=== PATIENT | female | born 1955 | race Caucasian/White ===

== ENCOUNTER → 2017-12-25 12:43 | Outpatient (CLI) | payer OTHER, SELFPAY ==
[2017-12-25 13:09] LABS: Add Manual Diff / Slide Review NO; Basophils Percent Auto 1.3 % (0-2); Eosinophils Percent Auto 4.1 % (2-4); Hematocrit 37.4 % (36-46); Hemoglobin 12.9 g/dL (12.0-16.0); Lymphocytes Percent Auto 35.9 % (25-40); Mean Corpuscular HGB Conc 34.6 % (30-36); Mean Corpuscular Hemoglobin 31.6 PG (26-34); Mean Corpuscular Volume 91.3 fL (80-100); Neutrophils Absolute Auto 3100 /uL (3000-5900); Neutrophils Percent Auto 51.7 % (50-75); Platelet Count 223 X10^3/uL (150-400); Red Cell Distribution Width 12.6 % (11.6-14.8); White Blood Cell Count 5.9 X10^3/uL (4.5-11.0)
[2017-12-25 13:12] LABS: Hemoglobin A1C% w Est Avg Glu 5.5 % (4.0-6.0)
[2017-12-25 14:09] LABS: Thyroid Stimulating Hormone 0.78 uIU/mL (0.47-4.68)
== END ==
PROVIDERS: PCP Family Medicine; Visit Provider Nurse Practitioner Family
DX: Z13.1 Encounter for screening for diabetes mellitus (principal); Z13.0 Encounter for screening for diseases of the blood and blood-forming organs and certain disorders involving the immune mechanism; Z13.29 Encounter for screening for other suspected endocrine disorder
CPT/HCPCS: 36415; 83036; 84443; 85025

== ENCOUNTER → 2017-12-26 08:00 | Outpatient (CLI) | payer OTHER, SELFPAY ==
--- NOTE | 2017-12-26 | DI.MG.S_ITS ---
BILATERAL DIGITAL SCREENING MAMMOGRAM 3D/2D WITH CAD: 12/26/2017 CLINICAL: Routine screening. Comparison is made to exams dated: 12/12/2016 mammogram, 11/30/2015 mammogram, and 03/24/2013 mammogram - [facility]. The tissue of both breasts is extremely dense, which lowers the sensitivity of mammography. Current study was also evaluated with a Computer Aided Detection (CAD) system. No significant masses, calcifications, or other findings are seen in either breast. There has been no significant interval change. IMPRESSION: NEGATIVE There is no mammographic evidence of malignancy. A 1 year screening mammogram is recommended. This exam was interpreted at Station ID: [id number]. NOTE: For mammograms, a report in lay terms will be sent to the patient. Approximately 15% of breast malignancies will not be visualized mammographically. In the management of a palpable breast mass, a negative mammogram must not discourage biopsy of a clinically suspicious lesion. Electronically Signed By: Oz spence/naseem:12/28/2017 09:34:26 copy to: Alexander Valdivia letter sent: Normal Exam ACR BI-RADS Category 1: Negative 3341F
== END ==
PROVIDERS: Family Provider Registered Nurse Women's Health Care, Ambulatory; PCP Family Medicine; Visit Provider Nurse Practitioner Family
DX: Z12.31 Encounter for screening mammogram for malignant neoplasm of breast (principal)
CPT/HCPCS: 77063; 77067

== ENCOUNTER → 2019-02-11 09:45 | Outpatient (CLI) | payer OTHER, SELFPAY | PROVIDERS: PCP Family Medicine; Visit Provider Nurse Practitioner Family | DX: Z78.0 Asymptomatic menopausal state (principal); R63.6 Underweight; Z82.62 Family history of osteoporosis | CPT/HCPCS: 77080 ==

== ENCOUNTER → 2020-01-27 10:11 | Outpatient (CLI) | payer MEDICARE, OTHER, SELFPAY ==
--- NOTE | 2020-01-27 | DI.MG.S_ITS ---
BILATERAL DIGITAL SCREENING MAMMOGRAM 3D/2D WITH CAD: 01/27/2020 CLINICAL: Routine screening. Comparison is made to exams dated: 12/26/2017 mammogram, 12/12/2016 mammogram, and 11/30/2015 mammogram - . The tissue of both breasts is extremely dense, which lowers the sensitivity of mammography. Current study was also evaluated with a Computer Aided Detection (CAD) system. There are benign diffuse calcifications in the left breast. There also are benign vascular calcifications in the right breast. No significant masses, calcifications, or other findings are seen in either breast. There has been no significant interval change. IMPRESSION: There is no mammographic evidence of malignancy. A 1 year screening mammogram is recommended. This exam was interpreted at Station ID: [id number]. NOTE: For mammograms, a report in lay terms will be sent to the patient. Approximately 15% of breast malignancies will not be visualized mammographically. In the management of a palpable breast mass, a negative mammogram must not discourage biopsy of a clinically suspicious lesion. Electronically Signed By: Varun ortiz/naseem:01/27/2020 18:21:18 copy to: Alexander Valdivia letter sent: Normal Exam ACR BI-RADS Category 2: Benign Finding(s) 3342F
== END ==
PROVIDERS: PCP Family Medicine; Referring Provider Internal Medicine; Visit Provider Internal Medicine
DX: Z12.31 Encounter for screening mammogram for malignant neoplasm of breast (principal)
CPT/HCPCS: 77063; 77067

== ENCOUNTER → 2020-10-22 07:31 | Outpatient (CLI) | payer MEDICARE, OTHER, SELFPAY ==
[2020-10-22] MEDS: COVID-19 VACC, Ad26(JANSSEN)/PF 0.5 ML IM (07:37)
== END ==
PROVIDERS: Visit Provider Internal Medicine
DX: Z23 Encounter for immunization (principal)
CPT/HCPCS: 0031A; 91303

== ENCOUNTER → 2021-05-04 13:32 | Outpatient (CLI) | payer MEDICARE, OTHER, SELFPAY ==
--- NOTE | 2021-05-04 | DI.MG.S_ITS ---
BILATERAL DIGITAL SCREENING MAMMOGRAM 3D/2D WITH CAD: 05/04/2021 CLINICAL: Routine screening. Comparison is made to exams dated: 01/27/2020 mammogram, 12/26/2017 mammogram, and 12/12/2016 mammogram - [facility]. The tissue of both breasts is extremely dense, which lowers the sensitivity of mammography. Current study was also evaluated with a Computer Aided Detection (CAD) system. There is an oval equal density focal asymmetry with an obscured and circumscribed margin in the left breast at 3 o'clock anterior depth. No other significant masses, calcifications, or other findings are seen in either breast. IMPRESSION: INCOMPLETE: NEEDS ADDITIONAL IMAGING EVALUATION The oval equal density focal asymmetry in the left breast is indeterminate. Mediolateral and spot compression views as well as additional views with possible ultrasound are recommended. This exam was interpreted at Station ID: [id number]. NOTE: For mammograms, a report in lay terms will be sent to the patient. Approximately 15% of breast malignancies will not be visualized mammographically. In the management of a palpable breast mass, a negative mammogram must not discourage biopsy of a clinically suspicious lesion. Electronically Signed By: Oz spence/naseem:05/06/2021 07:46:16 copy to: Alexander Valdivia letter sent: Additional Imaging Needed ACR BI-RADS Category 0: Incomplete 3340F
== END ==
PROVIDERS: PCP Internal Medicine; Referring Provider Internal Medicine; Visit Provider Internal Medicine
DX: Z12.31 Encounter for screening mammogram for malignant neoplasm of breast (principal); N64.89 Other specified disorders of breast
CPT/HCPCS: 77063; 77067

== ENCOUNTER → 2021-05-30 09:24 | Outpatient (CLI) | payer MEDICARE, OTHER, SELFPAY ==
--- NOTE | 2021-05-30 | DI.US.S_ITS ---
LIMITED ULTRASOUND OF LEFT BREAST AND AXILLA: 05/30/2021 CLINICAL: Patient returns today to evaluate a focal asymmetry in the left breast. Comparison is made to exams dated: 05/30/2021 mammogram, 05/04/2021 mammogram, 01/27/2020 mammogram, 12/26/2017 mammogram, and 12/12/2016 mammogram - [facility]. Color flow and real-time ultrasound of the left breast 3 o'clock was performed. Larkin scale images of the real-time examination were reviewed. There is a 0.4 cm x 0.4 cm x 0.3 cm oval cyst in the left breast at 3 o'clock anterior depth. This oval cyst is anechoic with internal echoes. This correlates with mammography findings. There are related rim calcifications. Color flow imaging demonstrates that there is an adjacent vascularity. There are adjacent dilated ducts without intraductal mass seen. IMPRESSION: PROBABLY BENIGN The 0.4 cm oval cyst in the left breast is consistent with a complicated cyst and is probably benign. A follow-up mammogram and an ultrasound in 6 months is recommended to demonstrate stability. Exam findings were conveyed to the patient. This exam was interpreted at Station ID: [id number]. Electronically Signed By: Beck Pulido M.D. slc/:05/30/2021 10:54:47 copy to: Alexander Valdivia letter sent: Followup Recommended Ultrasound BI-RADS: 3 Probably benign
--- NOTE | 2021-05-30 | DI.MG.S_ITS ---
UNILATERAL LEFT DIGITAL DIAGNOSTIC MAMMOGRAM 3D/2D WITH ADDITIONAL VIEWS: 05/30/2021 CLINICAL: Additional evaluation requested from prior study. Comparison is made to exams dated: 05/04/2021 mammogram, 01/27/2020 mammogram, 12/26/2017 mammogram, and 12/12/2016 mammogram - [facility]. The tissue of left breast is extremely dense, which lowers the sensitivity of mammography. There is an oval equal density focal asymmetry with an obscured and circumscribed margin in the left breast at 3 o'clock anterior depth. There are diffused calcifications in both breasts. No other significant masses or calcifications are seen in the breast. IMPRESSION: INCOMPLETE: NEEDS ADDITIONAL IMAGING EVALUATION The oval equal density focal asymmetry in the left breast is indeterminate. A targeted ultrasound is recommended and will immediately follow. This exam was interpreted at Station ID: [id number]. NOTE: For mammograms, a report in lay terms will be sent to the patient. Approximately 15% of breast malignancies will not be visualized mammographically. In the management of a palpable breast mass, a negative mammogram must not discourage biopsy of a clinically suspicious lesion. Electronically Signed By: Beck Pulido M.D. slc/:05/30/2021 09:48:01 copy to: Alexander DAHL BI-RADS Category 0: Incomplete 3340F
== END ==
PROVIDERS: PCP Internal Medicine; Referring Provider Internal Medicine; Visit Provider Internal Medicine
DX: R92.8 Other abnormal and inconclusive findings on diagnostic imaging of breast (principal); N60.02 Solitary cyst of left breast
CPT/HCPCS: 76642; 77065; G0279

== ENCOUNTER → 2021-08-07 09:31 | Outpatient (CLI) | payer MEDICARE, OTHER, SELFPAY ==
[2021-08-07 10:23] LABS: COVID19 -Nasal RAPID Negative (Negative)
== END ==
PROVIDERS: PCP Internal Medicine; Referring Provider Surgery; Visit Provider Surgery
DX: Z01.812 Encounter for preprocedural laboratory examination (principal); Z20.822 Contact with and (suspected) exposure to COVID-19
CPT/HCPCS: 87635; C9803

== ENCOUNTER 2021-08-08 06:50 | Day surgery (SDC) | payer MEDICARE, OTHER, SELFPAY ==
[2021-08-08 07:12] VITALS: BMI 19.5
[2021-08-08 07:19] VITALS: BP 114/79; PULSE 79; RESP 16; TEMP 37.3; O2SAT 97
[2021-08-08] MEDS: LACTATED RINGERS 1,000 ML 84 ML IV (07:29)
--- NOTE | 2021-08-08 07:46 | PM.HP.1 ---
History of Present Illness History of Present Illness Date Patient Seen: 08/08/21 Time Patient Seen: 07:46 Chief complaint: ORC Narrative: Had symptoms of hemorrhoid several months ago with some rectal bleeding. Hemorrhoidal symptoms and bleeding have since abated. She had a colonoscopy almost 5 years ago with findings of polyps and recommendation for repeat in 2021. Patient History Medical History (Updated 06/13/21 @ 16:45 by Buddy Prado MD) Hemorrhoids, internal Rectal bleed Surgical History H/O foot surgery Family & Social History Family History Father Hypertension Heart disease Diabetes mellitus Mother Cancer Social History: household members spouse lives independently Yes Tobacco & Substance use: Smoking Status Never smoker alcohol intake current Substance Use Type does not use Meds Home Medications and Allergies Home Medications Medication Instructions Recorded Confirmed Type ascorbic acid (vitamin C) 250 mg 250 mg PO BID 06/13/21 06/13/21 History tablet omega-3 fatty acids 1,000 mg 2,000 mg PO DAILY 06/13/21 08/08/21 History capsule (Fish Oil Concentrate) norethindrone acetate 0.5 0.5 tab 08/08/21 History mg-ethinyl estradiol 2.5 mcg tablet Allergies Allergy/AdvReac Type Severity Reaction Status Date / Time tetracycline [TETRACYCLINE] AdvReac Mild RASH Verified 08/08/21 07:20 Exam Vital Signs (past 8 hours): - 08/08/21 07:19 Temperature 99.1 F Pulse Rate 79 Respiratory Rate 16 Blood Pressure 114/79 Pulse Oximetry 97 Oxygen Delivery Method Room Air Const General: healthy appearing Eyes General: appearance normal, both eyes and all related structures Resp Effort & Inspection: normal respiratory effort Assessment & Plan Assessment and plan (1) Rectal bleed: Status: Acute Plan Proceed with colonoscopy. She understands the risks and benefits and wishes to proceed. COVID-19 COVID-19 status: Negative Result date/Date tested (Pos, Neg/Pending): 08/07/21 Time Spent With Patient Critical Care time: I spent a total of [] minutes of critical care time on this patient's care today; this time is exclusive of procedural time.
[2021-08-08] MEDS: MIDAZOLAM 5 MG/5 ML VIAL IV (08:12)
[2021-08-08] MEDS: fentaNYL 250 MCG/5 ML INJ IV (08:12)
[2021-08-08 08:30] VITALS: BP 112/66; PULSE 61; RESP 7; TEMP 36.3; O2SAT 98
--- NOTE | 2021-08-08 08:30 | PM.OP.COLON ---
Operative Date/Time/Diagnoses Date of procedure: 08/08/21 Time of procedure: 08:30 Pre-op diagnosis: Rectal bleeding Post-op diagnosis: same Procedure & Clinicians Study performed: Colonoscopy Same procedure as scheduled: Yes Indications: Rectal bleeding Surgeon: Buddy Prado Procedure Notes SCOAP/Timeout: Yes Procedure in detail: Procedure: The patient was brought to the endoscopy suite, placed in left lateral decubitus position. The patient was connected to monitoring devices. A time-out was performed. Sedation was administered. Once the patient was adequately sedated, a digital rectal exam was performed and was normal. The scope was then inserted and advanced to the cecum where the appendiceal orifice was identified and photographed. The scope was then slowly withdrawn over greater than 6 minutes. Mucosa was thoroughly inspected. No lesions were noted. The scope was retroflexed in the rectum. Mild internal hemorrhoids were noted. The scope was straightened and removed. The patient was awakened and brought to recovery. Versed: 7 mg Fentanyl: 175 mcg EBL: 0 Findings: No polyps Scope withdrawal time: 14 Sedation minutes: 35 Specimen(s): none sent Post-procedure Recommendations: Colonoscopy in 10 years Disposition: PACU
[2021-08-08 08:35] VITALS: BP 99/51; PULSE 58; RESP 8; O2SAT 100
[2021-08-08 08:40] VITALS: BP 102/60; PULSE 59; RESP 6; O2SAT 100
[2021-08-08 08:45] VITALS: BP 106/66; PULSE 62; RESP 6; TEMP 36.2; O2SAT 100
[2021-08-08 09:01] VITALS: BP 113/68; PULSE 60; RESP 12; TEMP 36.5; O2SAT 99
== END 2021-08-08 09:13 | disposition home or self-care (01) ==
PROVIDERS: PCP Internal Medicine; Referring Provider Surgery; Visit Provider Surgery
PROC: 0DJD8ZZ Inspection of Lower Intestinal Tract, Via Natural or Artificial Opening Endoscopic (ICD-10-PCS; CPT 45378; principal; 2021-08-08 07:45)
DX: K62.5 Hemorrhage of anus and rectum (principal); Z86.010 Personal history of colon polyps; K64.8 Other hemorrhoids
CPT/HCPCS: 45378; 99152; 99153; J2250; J3010

== ENCOUNTER → 2021-11-08 07:59 | Outpatient (ROUT) | payer MEDICARE, OTHER, SELFPAY ==
[2021-11-08 08:16] LABS: Add Manual Diff / Slide Review NO; Basophils Absolute Auto 100 /uL (0-100); Eosinophils Absolute Auto 300 /uL (0-450); Eosinophils Percent Auto 6.9 % (2-4); Hematocrit 37.7 % (36-46); Hemoglobin 12.8 g/dL (12.0-16.0); Lymphocytes Absolute Auto 1500 /uL (1100-4500); Lymphocytes Percent Auto 37.4 % (25-40); Mean Corpuscular Hemoglobin 31.1 PG (26-34); Mean Corpuscular Volume 91.4 fL (80-100); Monocytes Absolute Auto 300 /uL (0-900); Monocytes Percent Auto 8.4 % (3-14); Neutrophils Absolute Auto 1800 /uL (1500-7000); Neutrophils Percent Auto 45.3 % (50-75); Platelet Count 260 X10^3/uL (150-400); Red Blood Cell Count 4.12 X10^6/uL (4.0-5.2); Red Cell Distribution Width 12.8 % (11.6-14.8)
== END ==
PROVIDERS: PCP Internal Medicine; Visit Provider Internal Medicine
DX: Z13.0 Encounter for screening for diseases of the blood and blood-forming organs and certain disorders involving the immune mechanism (principal)
CPT/HCPCS: 85025

== ENCOUNTER → 2021-11-29 08:52 | Outpatient (CLI) | payer MEDICARE, OTHER, SELFPAY ==
--- NOTE | 2021-11-29 08:55 | DI.MG.S_ITS ---
UNILATERAL LEFT DIGITAL DIAGNOSTIC MAMMOGRAM 3D/2D SHORT-TERM FOLLOW-UP: 11/29/2021 CLINICAL: Short term follow up for the left breast. Comparison is made to exams dated: 05/30/2021 mammogram, 05/04/2021 mammogram, and 01/27/2020 mammogram - [facility]. The tissue of left breast is extremely dense, which lowers the sensitivity of mammography. There is an oval equal density mass with an obscured and circumscribed margin in the left breast at 3 o'clock middle depth. This is not significantly changed. No other significant masses or calcifications are seen in the breast. IMPRESSION: INCOMPLETE: NEEDS ADDITIONAL IMAGING EVALUATION The oval equal density mass in the left breast is indeterminate. An ultrasound is recommended. Patient will return for ultrasound. This exam was interpreted at Station ID: [id number]. NOTE: For mammograms, a report in lay terms will be sent to the patient. Approximately 15% of breast malignancies will not be visualized mammographically. In the management of a palpable breast mass, a negative mammogram must not discourage biopsy of a clinically suspicious lesion. Electronically Signed By: Oz spence/:11/29/2021 09:40:08 Entry: - 11/29/2021 11:52:30 copy to: Alexander Valdviia letter sent: Additional Imaging Needed ACR BI-RADS Category 0: Incomplete 3340F
== END ==
PROVIDERS: PCP Internal Medicine; Referring Provider Internal Medicine; Visit Provider Internal Medicine
DX: R92.8 Other abnormal and inconclusive findings on diagnostic imaging of breast (principal); N63.25 Unspecified lump in the left breast, overlapping quadrants
CPT/HCPCS: 77065; G0279

== ENCOUNTER → 2021-12-03 12:16 | Outpatient (CLI) | payer MEDICARE, OTHER, SELFPAY ==
--- NOTE | 2021-12-03 12:18 | DI.US.S_ITS ---
ULTRASOUND OF LEFT BREAST: 12/03/2021 CLINICAL: Short term follow up for the left breast. Comparison is made to exams dated: 11/29/2021 mammogram, 05/30/2021 ultrasound, 05/30/2021 mammogram, 05/04/2021 mammogram, 01/27/2020 mammogram, and 12/26/2017 mammogram - [facility]. Color flow ultrasound of the left breast was performed on the areas of interest. Larkin scale images of the real-time examination were reviewed. There is a stable oval cyst in the left breast at 3 o'clock anterior depth. This oval cyst is anechoic with internal echoes. This correlates with mammography findings. There are related rim calcifications. IMPRESSION: PROBABLY BENIGN The stable oval cyst in the left breast is consistent with a complicated cyst and is probably benign. A follow-up ultrasound in 6 months is recommended to demonstrate stability. This exam was interpreted at Station ID: [id number]. SUMMARY: The patient will be due for her bilateral mammogram at this time. Electronically Signed By: Nathalia xavier/naseem:12/03/2021 12:49:03 copy to: Alexander Valdivia letter sent: Followup Recommended Ultrasound BI-RADS: 3 Probably benign
== END ==
PROVIDERS: PCP Internal Medicine; Referring Provider Internal Medicine; Visit Provider Internal Medicine
DX: R92.8 Other abnormal and inconclusive findings on diagnostic imaging of breast (principal); N60.02 Solitary cyst of left breast
CPT/HCPCS: 76642

== ENCOUNTER → 2022-10-10 12:01 | Outpatient (CLI) | payer MEDICARE, OTHER, SELFPAY ==
--- NOTE | 2022-10-10 | DI.US.S_ITS ---
LIMITED ULTRASOUND OF LEFT BREAST: 10/10/2022 CLINICAL: Patient returns for a 6 month follow up of the left breast. Comparison is made to exams dated: 10/10/2022 mammogram, 12/03/2021 ultrasound, 05/30/2021 ultrasound, 11/29/2021 mammogram, 05/04/2021 mammogram, and 05/30/2021 mammogram - [facility]. Color flow and real-time ultrasound of the left breast 3 o'clock region were performed. Larkin scale images of the real-time examination were reviewed. There is a stable 0.4 cm oval complicated cyst in the left breast at 3 o'clock anterior depth. This oval complicated cyst is anechoic with internal echoes. This correlates with mammography findings. There are related rim calcifications. IMPRESSION: PROBABLY BENIGN The stable 0.4 cm oval complicated cyst in the left breast is probably benign. A follow-up ultrasound in 12 months is recommended to demonstrate long-term stability. Patient will be due for mammogram at that time. Exam findings were conveyed to the patient. This exam was interpreted at Station ID: [id number]. Electronically Signed By: Beck Pulido M.D. slc/:10/10/2022 12:55:13 copy to: Alexander Valdivia letter sent: Followup Recommended Ultrasound BI-RADS: 3 Probably benign
--- NOTE | 2022-10-10 | DI.MG.S_ITS ---
BILATERAL DIGITAL DIAGNOSTIC MAMMOGRAM 3D/2D: 10/10/2022 CLINICAL: Short term follow up of the left breast, due for bilateral imaging. Comparison is made to exams dated: 12/03/2021 ultrasound, 11/29/2021 mammogram, 05/30/2021 ultrasound, 05/30/2021 mammogram, 05/04/2021 mammogram, and 01/27/2020 mammogram - [facility]. Both breasts are extremely dense, which lowers the sensitivity of mammography (category d />75% glandular tissue). There is a stable oval mass in the left breast at 3 o'clock middle depth. Diffuse calcifications in both breasts. No other significant masses, calcifications, or other findings are seen in either breast. IMPRESSION: INCOMPLETE: NEEDS ADDITIONAL IMAGING EVALUATION The stable oval mass in the left breast is indeterminate. A targeted ultrasound is recommended and will immediately follow. This exam was interpreted at Station ID: [id number]. NOTE: For mammograms, a report in lay terms will be sent to the patient. Approximately 15% of breast malignancies will not be visualized mammographically. In the management of a palpable breast mass, a negative mammogram must not discourage biopsy of a clinically suspicious lesion. Electronically Signed By: Beck Pulido M.D. slc/:10/10/2022 12:30:05 copy to: Alexander Valdivia letter sent: Normal Exam ACR BI-RADS Category 0: Incomplete 3340F
== END ==
PROVIDERS: PCP Internal Medicine; Referring Provider Internal Medicine; Visit Provider Internal Medicine
DX: R92.8 Other abnormal and inconclusive findings on diagnostic imaging of breast (principal); N60.02 Solitary cyst of left breast
CPT/HCPCS: 76642; 77066; G0279

== ENCOUNTER → 2023-12-03 12:04 | Outpatient (CLI) | payer MEDICARE, OTHER, SELFPAY ==
--- NOTE | 2023-12-03 12:08 | DI.MG.S_ITS ---
BILATERAL DIGITAL DIAGNOSTIC MAMMOGRAM 3D/2D: 12/03/2023 CLINICAL: Patient returns for a 12 month follow up of the left breast, due for bilateral exam. Comparison is made to exams dated: 10/10/2022 mammogram, 11/29/2021 mammogram, 05/30/2021 mammogram, 05/04/2021 mammogram, and 01/27/2020 mammogram - [facility]. Both breasts are extremely dense, which lowers the sensitivity of mammography (category d />75% glandular tissue). There is a stable oval mass in the left breast at 3 o'clock middle depth. No other significant masses, calcifications, or other findings are seen in either breast. IMPRESSION: INCOMPLETE: NEEDS ADDITIONAL IMAGING EVALUATION The stable oval mass in the left breast is indeterminate. An ultrasound is recommended. Based on the Tyrer Cuzick model (a risk assessment model) the patient's lifetime risk is 14.5% and her 10 year risk is 8.7%. According to the ACR, ACS, and NCCN guidelines, an annual breast MRI exam along with mammogram is recommended if the patient's lifetime risk is 20% or greater. This exam was interpreted at Station ID: [id number]. NOTE: For mammograms, a report in lay terms will be sent to the patient. Approximately 15% of breast malignancies will not be visualized mammographically. In the management of a palpable breast mass, a negative mammogram must not discourage biopsy of a clinically suspicious lesion. Electronically Signed By: Stuart Gordon M.D. lc/:12/03/2023 13:06:35 copy to: Alexander Valdivia ACR BI-RADS Category 0: Incomplete 3340F
--- NOTE | 2023-12-03 12:08 | DI.US.S_ITS ---
LIMITED ULTRASOUND OF LEFT BREAST: 12/03/2023 CLINICAL: 6 month follow-up of left breast. Comparison is made to exams dated: 12/03/2023 mammogram, 10/10/2022 ultrasound, 10/10/2022 mammogram, 12/03/2021 ultrasound, 11/29/2021 mammogram, and 05/30/2021 ultrasound - [facility]. Color flow and real-time ultrasound of the left breast 3 o'clock region were performed. Larkin scale images of the real-time examination were reviewed. There is a stable benign 0.3 cm oval complicated cyst in the left breast at 3 o'clock anterior depth 1 cm from the nipple. This correlates with mammography findings. There are related rim calcifications. IMPRESSION: BENIGN There is no sonographic evidence of malignancy. The stable 0.3 cm oval complicated cyst in the left breast is benign. Return to annual mammogram screening schedule is recommended. This exam was interpreted at Station ID: [id number]. Electronically Signed By: Stuart Gordon M.D. lc/:12/03/2023 13:08:05 copy to: Alexander Valdivia letter sent: Normal Exam Ultrasound BI-RADS: 2 Benign
== END ==
PROVIDERS: PCP Internal Medicine; Referring Provider Internal Medicine; Visit Provider Internal Medicine
DX: R92.8 Other abnormal and inconclusive findings on diagnostic imaging of breast (principal); N60.02 Solitary cyst of left breast; R92.343 Mammographic extreme density, bilateral breasts
CPT/HCPCS: 76642; 77066; G0279

== ENCOUNTER → 2025-01-12 13:56 | Outpatient (CLI) | payer MEDICARE, OTHER, SELFPAY ==
--- NOTE | 2025-01-12 13:59 | DI.MG.S_ITS ---
MM screening mammo BI: 01/12/2025. BI-RADS: 1 CLINICAL: 69-year old female for bilateral screening mammogram. Tyrer-Cuzick lifetime risk of 5.7%. No personal or first-degree family history of breast cancer. PRIOR EXAMS 12/03/2023, 10/10/2022, 12/03/2021, 11/29/2021, 05/30/2021, 05/04/2021, 01/27/2020, 12/26/2017, 12/12/2016, 11/30/2015. MAMMOGRAPHY TECHNIQUE: 2D and 3D (tomosynthesis) digital mammographic views obtained, with additional images as needed for full coverage. Current study was also evaluated with a Computer Aided Detection (CAD) system. DENSITY D. The breasts are extremely dense, which lowers the sensitivity of mammography. MAMMOGRAPHY FINDINGS Bilateral: No suspicious mass, asymmetry, microcalcification, or other abnormality seen. IMPRESSION: * No evidence of malignancy. RECOMMENDATIONS Bilateral * Annual screening mammography. OVERALL ASSESSMENT CATEGORY BI-RADS-1: Negative. The [employer] recommends annual screening mammography beginning at age 40 for women with average risk of breast cancer. ELECTRONICALLY SIGNED: Ernestina Barr M.D. on 01/15/2025 at 01:42:56 PM PT Interpreting Station ID: [id number]
== END ==
PROVIDERS: PCP Nurse Practitioner; Referring Provider Nurse Practitioner; Visit Provider Nurse Practitioner
DX: Z12.31 Encounter for screening mammogram for malignant neoplasm of breast (principal); R92.343 Mammographic extreme density, bilateral breasts
CPT/HCPCS: 77063; 77067